=== PATIENT | male | born 1960 | race Caucasian/White ===

== ENCOUNTER → 2019-07-15 11:32 | Outpatient (BNVA) | payer MEDICARE, MEDICAID, SELFPAY | PROVIDERS: Family Provider Physician Assistant Medical; PCP Physician Assistant Medical; Visit Provider Registered Nurse | DX: E11.9 Type 2 diabetes mellitus without complications (principal); Z79.4 Long term (current) use of insulin; I10 Essential (primary) hypertension | CPT/HCPCS: 80053; 80061; 83036; 85025 ==

== ENCOUNTER → 2019-10-16 10:33 | Outpatient (BNVA) | payer MEDICARE, MEDICAID, SELFPAY | PROVIDERS: Family Provider Physician Assistant Medical; PCP Physician Assistant Medical; Visit Provider Nurse Practitioner Family | DX: E11.9 Type 2 diabetes mellitus without complications (principal); Z79.4 Long term (current) use of insulin; E78.5 Hyperlipidemia, unspecified; I10 Essential (primary) hypertension; G40.309 Generalized idiopathic epilepsy and epileptic syndromes, not intractable, without status epilepticus; Z79.899 Other long term (current) drug therapy | CPT/HCPCS: 80053; 80061; 83036 ==

== ENCOUNTER → 2020-01-18 14:25 | Outpatient (BNVA) | payer MEDICARE, MEDICAID, SELFPAY | PROVIDERS: Family Provider Physician Assistant Medical; PCP Physician Assistant Medical; Visit Provider Registered Nurse | DX: E11.40 Type 2 diabetes mellitus with diabetic neuropathy, unspecified (principal); Z79.4 Long term (current) use of insulin; I10 Essential (primary) hypertension; E11.649 Type 2 diabetes mellitus with hypoglycemia without coma; G40.309 Generalized idiopathic epilepsy and epileptic syndromes, not intractable, without status epilepticus | CPT/HCPCS: 80053; 83036 ==

== ENCOUNTER → 2020-05-18 15:10 | Outpatient (BNVA) | payer MEDICARE, MEDICAID, SELFPAY | PROVIDERS: Family Provider Physician Assistant Medical; PCP Nurse Practitioner Family; Visit Provider Nurse Practitioner Family | DX: L03.90 Cellulitis, unspecified; L02.413 Cutaneous abscess of right upper limb | CPT/HCPCS: 87070; 87077; 87184 ==

== ENCOUNTER 2023-05-08 20:50 | Emergency (ER) | payer MEDICARE, MEDICAID, SELFPAY ==
[2023-05-08 20:51] VITALS: BMI 39.5
[2023-05-08 21:03] VITALS: BP 166/88; PULSE 95; RESP 18; TEMP 36.6; O2SAT 91
[2023-05-08 21:32] VITALS: BP 171/82; PULSE 92; RESP 24; O2SAT 92
[2023-05-08 22:14] VITALS: BP 170/88; PULSE 88; RESP 15; O2SAT 96
[2023-05-08 22:30] VITALS: BP 163/82; PULSE 88; RESP 17; O2SAT 93
--- NOTE | 2023-05-08 22:31 | USR_ITS ---
PROCEDURE INFORMATION: Exam: US Duplex Lower Extremity Veins, Bilateral Exam date and time: 05/08/2023 11:14 PM Age: 62 years old Clinical indication: Edema, localized; Lower extremity, left; Prior surgery; Surgery date: 6+ months; Surgery type: A venous stent is visualized in the proximal portion of the left sfv. Patient states that a vascular surgeon at [facility] put that in just after his initial heavy-burden lle dvt in 1999. ; Additional info: Pain and swelling, previous blood clot lle TECHNIQUE: Imaging protocol: Real-time duplex ultrasound of the bilateral extremities with 2-D peraza scale, color Doppler flow and spectral waveform analysis including responses to compression and other maneuvers (when performed) with image documentation. Complete exam focused on the lower extremity veins. COMPARISON: No relevant prior studies available. FINDINGS: Right deep veins: Unremarkable. The common femoral, femoral, proximal profunda femoral and popliteal veins are patent without thrombus. Normal Doppler waveforms. Normal compressibility and/or augmentation response. Left deep veins: No definitive visualization of the majority of the left lower extremity venous system which appears chronically occluded. All of the chilkat veins appear small and likely scarred down over time. Note is made of an occluded left superficial femoral venous stent. Multiple collaterals are noted in the left lower extremity. Superficial veins: Greater saphenous veins at the saphenofemoral junctions are patent bilaterally without thrombus. Soft tissues: Unremarkable. US/[place] [id number] IMPRESSION: 1. Nonvisualization of the deep left venous system which is likely chronically occluded. An occluded left superficial femoral venous stent is noted. No definitive evidence of acute left lower extremity deep venous thrombosis. 2. No evidence of right lower extremity venous thrombosis.
--- NOTE | 2023-05-08 22:31 | CTR_ITS ---
PROCEDURE INFORMATION: Exam: CT Abdomen And Pelvis With Contrast Exam date and time: 05/09/2023 12:19 AM Age: 62 years old Clinical indication: Abdominal pain; Generalized; Additional info: Low back and abd pain TECHNIQUE: Imaging protocol: Computed tomography of the abdomen and pelvis with contrast. Radiation optimization: All CT scans at this facility use at least one of these dose optimization techniques: automated exposure control; mA and/or kV adjustment per patient size (includes targeted exams where dose is matched to clinical indication); or iterative reconstruction. Contrast material: OMNI 350; Contrast volume: 100 ml; Contrast route: INTRAVENOUS (IV); COMPARISON: [place] [id number] 05/08/2023 11:14 PM RADIATION DOSE METRICS: Total DLP (mGy-cm): 1417 FINDINGS: Lungs: Right posterior lower lobe atelectasis or scarring. Heart: Heart size is within normal limits. There is no pericardial effusion or pericardial thickening. Liver: The liver is normal. No hepatic masses are identified. Gallbladder and bile ducts: The gallbladder is contracted. There is no ductal dilatation. Pancreas: The pancreas is atrophic without obvious abnormality. Spleen: Calcified splenic granulomata are noted. The spleen is otherwise normal. Adrenal glands: The adrenal glands are normal. Kidneys and ureters: There is normal enhancement of the kidneys. No renal calcifications are identified. There is no hydronephrosis. Stomach and bowel: Moderate retained colonic stool. There is no large or small bowel obstruction. There is no evidence of bowel wall thickening. Appendix: A normal appendix is identified. Intraperitoneal space: No inflammatory changes are identified. There is no free fluid or fluid collection seen. There is no pneumoperitoneum. Vasculature: Atherosclerotic calcifications of the aorta are present. No aneurysm is identified. A left common iliac venous stent is present. The central portions of the stent are clamped down and appears severely narrowed. Calcifications are noted within the stent consistent with longstanding thrombus. The stent extends to the level of the left femoral vein. There appear to be multiple anterior abdominal wall venous collaterals. Lymph nodes: There are no enlarged retroperitoneal or mesenteric lymph nodes. There are mildly enlarged left inguinal lymph nodes, the larger measuring up to 2.1 x 1.4 cm. No other enlarged lymph nodes are seen. Urinary bladder: The bladder is unremarkable. Reproductive: The prostate is grossly unremarkable. Bones/joints: No acute osseous abnormalities are seen. Soft tissues: The soft tissues are within normal limits. There is a moderate periumbilical hernia containing only fat. Small bilateral inguinal hernias containing only fat are present. CT/CT abdomen pelvis w con* [id number] IMPRESSION: 1. Left common iliac venous stent which appears severely narrowed at the junction with the inferior vena cava. Calcifications are seen throughout the intraluminal portions of the stent consistent with longstanding thrombosis. 2. There are mildly enlarged left inguinal lymph nodes, the larger measuring up to 2.1 x 1.4 cm. 3. No acute intra-abdominal or pelvic process.
[2023-05-08 22:38] LABS: Basophils % 0.4 %; Eosinophils # 0.1 10^3/uL (0.0-0.8); Eosinophils % 0.7 %; Lymphocytes # 0.8 10^3/uL (0.8-4.8); Lymphocytes % 8.5 %; Mean Corpuscular HGB Conc 33.6 g/dL (30-55); Mean Corpuscular Hemoglobin 27.6 pg (27-33); Mean Corpuscular Volume 82.1 fl (82-101); Mean Platelet Volume 8.9 fL (7.4-10.4); Monocytes # 0.6 10^3/uL (0.2-0.9); Monocytes % 7.1 %; Neutrophils # 7.42 10^3/uL (1.8-7.7); Neutrophils % 82.7 %; Nucleated Red Blood Cells % 0 %; Platelet Count 288 10^3/cmm (157-399); Red Blood Count 4.75 10^6/uL (3.85-5.65); Red Cell Distribution Width 12.8 % (12.1-15.1); White Blood Count 8.97 10^3/uL (3.29-11.43)
[2023-05-08 22:43] LABS: Glucose Point of Care 259 mg/dL (70-110)
[2023-05-08 22:45] LABS: Add Urine Microscopic? NO; Charge for UA Resulting for Rev
[2023-05-08 22:46] LABS: Urine Color Yellow (Yellow)
[2023-05-08 22:47] LABS: Bilirubin Urine Neg (Negative); Blood Urine Neg (Negative); Glucose Urine UA 4+ (Normal); Ketones Urine 1+ (Negative); Leukocyte Esterase Urine Negative (Negative); Nitrate Urine Negative (Negative); Protein Urine Neg (Negative); Specific Gravity, Urine 1.015 (1.005-1.030); Urine Appearance Clear (CLEAR); Urobilinogen Urine Norm (Negative); pH Urine 6.5 (5-7)
[2023-05-08 22:54] LABS: Alanine Aminotransferase 11 U/L (0-41); Albumin Level 3.9 g/dL (3.5-5.2); Alkaline Phosphatase 180 U/L (40-130); Aspartate Amino Transferase 9 U/L (0-40); Blood Urea Nitrogen 11 mg/dL (8-23); Carbon Dioxide 27 mmol/L (22-29); Chloride 97 mmol/L (98-107); Creatinine Clr Calc Pharmacy 142.1822; Globulin 2.9 g/dL (1.3-4.6); Glomerular Filtration Rate 98.6 mL/min (90-130); Glucose 237 mg/dL (65-115); Osmolality Calculated 287 mOsm/kg (285-295); Sodium 135 mmol/L (136-145); Total Bilirubin 0.3 mg/dL (0.15-1.2); Total Protein 6.8 g/dL (6.6-8.7)
[2023-05-08 23:00] VITALS: BP 146/74; PULSE 86; RESP 23; O2SAT 92
[2023-05-08 23:05] LABS: Lactic Sepsis W/Reflex 1.3 mmol/L (0.5-2.2)
[2023-05-08] MEDS: ketorolac 30 mg/mL INJ IVP (23:22)
[2023-05-08 23:30] VITALS: BP 165/81; PULSE 84; RESP 22; O2SAT 94
[2023-05-09 00:13] VITALS: BP 187/94; PULSE 85; RESP 18; O2SAT 93
[2023-05-09] MEDS: iohexol 350 mg/mL 500 mL Btl (per mL) IV (00:29)
[2023-05-09 00:32] VITALS: BP 157/87; PULSE 81; RESP 20; O2SAT 96
[2023-05-09 01:11] VITALS: BP 169/89; PULSE 76; RESP 20; O2SAT 94
[2023-05-09 01:30] VITALS: BP 177/78; PULSE 74; RESP 22; O2SAT 95
--- NOTE | 2023-05-09 01:51 | ED_ITS ---
HPI - Extremity Problem 2 General: Chief complaint: Extremity Problem,Nontraumatic Stated complaint: leg pain Time Seen by Provider: 05/08/23 20:55 History of Present Illness: 62-year-old male presents emergency depa rtment via EMS personnel with complaints of right leg pain that started approximately 1 week ago and then went away. He states the pain started again today and he states that is a 9 out of 10 and goes from his upper right thigh to his buttocks into the lower portion of his back on the right side. He states he has a history of a DVT with a stent placed in the left leg and he feels like he has a blood clot in the right leg which is causing his pain. He denies known injury or trauma. He states he is a diabetic. He states that trying to bend his right leg feels like it increases the pain. He denies numbness or tingling. He denies known injury or trauma. Review of Systems 2 General: Reports: 10 or more systems reviewed and unremarkable except in HPI and below Musc: Reports: back pain and extremity pain [facility] ED 2 PFSH: Medical History Bilateral lower extremity edema Diabetic neuropathy Hyperlipidemia Scabies Type 2 diabetes mellitus with insulin therapy Social History Smoking and tobacco/nicotine status: former use of tobacco/nicotine Alcohol intake: never Physical Exam 2 Narrative: EXAM NARRATIVE: Constitutional: the patient appears well nourished and with normal development. Vital signs reviewed as documented. Morbidly obese, moderately unkept, HENMT: Normocephalic, atraumatic. External ears normal appearance without drainage. Nose without drainage, normal appearance. Mucus membranes moist. Neck is supple, No jugular venous distension, trachea is midline, no appreciable carotid bruits. No lymphadenopathy. No meningeal signs. Flexion, extension and lateral rotation is without pain. Eyes: Pupils are equal, round, reactive to light and accommodation. No scleral icterus. Extra-ocular movement are intact. Thorax is symmetrical and with equal rise and fall with respirations. Resp: Lungs are clear to auscultation. No wheezes, rales, crackles or ronchi at present. Cardio: Regular rate and rhythm. Positive S1, S2. No appreciable murmurs, rubs or gallops. GI: Abdominal exam reveals normal bowel sounds to all quadrants. No organomegaly. No obvious palpable masses noted. No hepatomegally appreciated. Soft, non-tender to palpation. Extremity: Trace bilateral lower extremity edema, dry gangrene noted to the right great toe approximately 1 cm x 2 cm and both femoral and pedal pulses are 2+ and equal bilaterally. Moves all extremities well, sensation in all extremities. Neuro: Alert and oriented x4, person, place, time and situation. Cranial nerves II through XII are grossly intact, there is no focal neurological deficits that I can appreciate at present. Sensation intact to all extremities. 2-point discrimination intact. Light touch intact to all extremities. Motor strength in the upper and lower extremities are equal and bilateral 5/5. Psych: Cooperative, calm, normal thought process, appropriate judgment. Skin: No lesions, rashes. No gross abnormalities noted. Back: Symmetrical, no obvious deformity, No CVA tenderness. Tenderness to palpation to the right gluteal region consistent with sciatica Course 2 Vital Signs: Vital signs: Vital Signs Temperature 97.8 F 05/08/23 21:03 Pulse Rate 75 05/09/23 02:16 Respiratory Rate 22 H 05/09/23 02:16 Blood Pressure 169/112 05/09/23 02:16 Pulse Oximetry 95 05/09/23 02:16 Oxygen Delivery Me thod Room Air 05/08/23 23:30 Oxygen Flow Rate 2 05/08/23 22:14 MDM - Extremity (Nontraumatic) Medical Decision Making Physical exam completed and documented I will obtain a CBC and CMP essentially both resulted as normal I did obtain a urinalysis and was found to have glucose and ketones, patient is a known diabetic. I did obtain an ultrasound of the bilateral lower extremities which demonstrated chronic DVT and occlusion of her previous placed stent on the left and no DVT or thrombus on the right lower extremity. CT of the abdomen pelvis did not demonstrate any acute findings that would lend cause to his right leg pain. Patient's clinical exam is consistent with sciatica I will prescribe him pain medications and advised him to follow-up with his primary care provider. Medical Records I reviewed the patient's medical records. Lab Data I reviewed the patient's lab results. 05/08/23 22:32 05/08/23 22:32 Radiology Impressions Abdomen/Pelvis CT 05/08/23 22:31 IMPRESSION: 1. Left common iliac venous stent which appears severely narrowed at the junction with the inferior vena cava. Calcifications are seen throughout the intraluminal portions of the stent consistent with longstanding thrombosis. 2. There are mildly enlarged left inguinal lymph nodes, the larger measuring up to 2.1 x 1.4 cm. 3. No acute intra-abdominal or pelvic process. Venous Duplex 05/08/23 22:31 IMPRESSION: 1. Nonvisualization of the deep left venous system which is likely chronically occluded. An occluded left superficial femoral venous stent is noted. No definitive evidence of acute left lower extremity deep venous thrombosis. 2. No evidence of right lower extremity venous thrombosis. ADDENDUM: 05/09/23 0148 ADDENDUM: THIS REPORT CONTAINS FINDINGS THAT MAY BE CRITICAL TO PATIENT CARE. The findings were verbally communicated via telephone conference with STEVIE HUBBARD at 1:46 AM CDT on 05/09/2023. The findings were acknowledged and understood. Laboratory Results WBC 8.97 10^3/uL (3.29-11.43) 05/08/23 22:32 RBC 4.75 10^6/uL (3.85-5.65) 05/08/23 22:32 Hgb 13.10 g/dL (11.27-16.99) 05/08/23 22:32 Hct 39.0 % (37-53) 05/08/23 22:32 MCV 82.1 fl (82-101) 05/08/23 22:32 MCH 27.6 pg (27-33) 05/08/23 22:32 MCHC 33.6 g/dL (30-55) 05/08/23 22:32 RDW 12.8 % (12.1-15.1) 05/08/23 22:32 Plt Count 288 10^3/cmm (157-399) 05/08/23 22:32 MPV 8.9 fL (7.4-10.4) 05/08/23 22:32 Neut % (Auto) 82.7 % 05/08/23 22:32 Lymph % (Auto) 8.5 % 05/08/23 22:32 [place] % (Auto) 7.1 % 05/08/23 22:32 Eos % (Auto) 0.7 % 05/08/23 22:32 Baso % (Auto) 0.4 % 05/08/23 22:32 Neut # (Auto) 7.42 10^3/uL (1.8-7.7) 05/08/23 22:32 Lymph # (Auto) 0.8 10^3/uL (0.8-4.8) 05/08/23 22:32 [place] # (Auto) 0.6 10^3/uL (0.2-0.9) 05/08/23: Eos # (Auto) 0.1 10^3/uL (0.0-0.8) 05/08/23 22: Baso # (Auto) 0.0 10^3/uL (0.0-0.1) 05/08/23: Nucleated RBC % (auto) 0 % 05/08/23: Nucleated RBCs # 0.0 /100WBC 05/08/23 22:32 Sodium 135 mmol/L (136-145) L 05/08/23 22:32 Potassium 5.0 mmol/L (3.5-5.1) 05/08/23 22:32 Chloride 97 mmol/L (98-107) L 05/08/23 22:32 Carbon Dioxide 27 mmol/L (22-29) 05/08/23 22:32 Anion Gap 16.0 (5-19) 05/08/23 22:32 BUN 11 mg/dL (8-23) 05/08/23 22:32 Creatinine 0.8 mg/dL (0.7-1.2) 05/08/23 22:32 GFR Calculation 98.6 mL/min (90-130) 05/08/23 22:32 Glucose 237 mg/dL (65-115) H 05/08/23 22:32 POC Glucose 259 mg/dL (70-110) H 05/08/23 22:38 Calculated Osmolality 287 mOsm/kg (285-295) 05/08/23 22:32 Lactic Acid 1.3 mmol/L (0.5-2.2) 05/08/23 22:44 Calcium 9.0 mg/dL (8.5-10.5) 05/08/23 22:32 Total Bilirubin 0.3 mg/dL (0.15-1.2) 05/08/23 22:32 AST 9 U/L (0-40) 05/08/23 22:32 ALT 11 U/L (0-41) 05/08/23 22:32 Alkaline Phosphatase 180 U/L (40-130) H 05/08/23 22:32 Total Protein 6.8 g/dL (6.6-8.7) 05/08/23 22:32 Albumin 3.9 g/dL (3.5-5.2) 05/08/23 22:32 Globulin 2.9 g/dL (1.3-4.6) 05/08/23 22:32 Procalcitonin 0.10 ng/mL (0-0.5) 05/08/23 22:32 Urine Color Yellow (Yellow) 05/08/23 22:39 Urine Appearance Clear (CLEAR) 05/08/23 22:39 Urine pH 6.5 (5-7) 05/08/23 22:39 Ur Specific [place] 1.015 (1.005-1.030) 05/08/23 22:39 Urine Protein Neg (Negative) 05/08/23 22:39 Urine Glucose (UA) 4+ (Normal) H 05/08/23 22:39 Urine Ketones 1+ (Negative) H 05/08/23 22:39 Urine Blood Neg (Negative) 05/08/23 22:39 Urine Nitrate Negative (Negative) 05/08/23 22:39 Urine Bilirubin Neg (Negative) 05/08/23 22:39 Urine Urobilinogen Norm mg/dL (Negative) 05/08/23 22:39 Ur Leukocyte Esterase Negative (Negative) 05/08/23 22:39 All radiology interpretation(s) finalized by discharge Discharge Plan Discharge Patient Disposition: Home Clinical Impression: Sciatica of right side, Chronic deep vein thrombosis of left lower extremity Condition: Stable Prescriptions: New tramadol 25 mg tablet 25 mg PO QID PRN (Reason: pain) Qty: 20 0RF No Action amlodipine 5 mg tablet 5 mg PO QDAY Qty: 90 0RF Levemir U-100 Insulin 100 unit/mL solution 50 unit SUBCUT BID 30 Days Qty: 30 3RF Rx Instructions: 50 units am & 50 units units evening. sufficient quantity (DME) pen needle, diabetic [BD Ultra-Fine Mini Pen Needle] 31 gauge x 3/16 needle See Rx Instructions .ROUTE .MEDSUPPLY Qty: 500 0RF Rx Instructions: USE WITH INSULIN 5 TIMES DAILY warfarin 10 mg tablet 10 mg PO DAILY Qty: 90 0RF topiramate 100 mg tablet 100 mg PO BID Qty: 180 0RF furosemide 20 mg tablet 20 mg PO DAILY Qty: 90 0RF ivermectin 3 mg tablet 9 mg PO DAILY Qty: 6 0RF Rx Instructions: Take 3 tabs now and repeat in 10 days. sulfamethoxazole-trimethoprim [Bactrim DS] 800-160 mg tablet 1 tab PO BID 15 Days Qty: 30 0RF pregabalin [Lyrica] 100 mg capsule 100 mg PO TID 30 Days Qty: 90 2RF sulfamethoxazole-trimethoprim [Bactrim DS] 800-160 mg tablet 1 tab PO Q12H 10 Days Qty: 20 0RF carbamide peroxide [Debrox] 6.5 % drops 5 drp otic (ear) DAILY 4 Days Qty: 15 0RF atorvastatin 40 mg tablet 40 mg PO QDAY Qty: 90 1RF Novolog U-100 Insulin aspart 100 unit/mL solution See Rx Instructions SUBCUT TID Qty: 10 3RF Rx Instructions: administer 10-20 units under the skin three times daily max 60 units. lisinopril 40 mg tablet See Rx Instructions .ROUTE .COMPLEX Qty: 90 0RF Dose Instruction: TAKE 1 TABLET BY MOUTH DAILY Rx Instructions: TAKE 1 TABLET BY MOUTH DAILY potassium chloride 20 mEq tablet,ER particles/crystals See Rx Instructions .ROUTE .COMPLEX Qty: 90 0RF Dose Instruction: TAKE 1 TABLET BY MOUTH DAILY Rx Instructions: TAKE 1 TABLET BY MOUTH DAILY insulin syringe-needle U-100 1 mL 30 gauge X 7/16 syringe See Rx Instructions .ROUTE .COMPLEX Qty: 100 0RF Dose Instruction: USE DIRECTED Rx Instructions: USE DIRECTED epinephrine 0.3 mg/0.3 mL auto-injector See Rx Instructions .ROUTE .COMPLEX Qty: 2 0RF Dose Instruction: INJECT 0.3MG IN THE MUSCLE EVERY 10 MINUTES NEEDED FOR ANAPHYLAXIS Rx Instructions: INJECT 0.3MG IN THE MUSCLE EVERY 10 MINUTES NEEDED FOR ANAPHYLAXIS Discharge Orders: Discharge ED (Routine); Ordered 05/09/23 Ordered By: Stevie Hubbard Referrals: Meche Kohler FNP [Primary Care Provider] - Discharge Diet: Usual diet Discharge Activity: Resume usual activity Patient Instructions: Opioid Safety, Pain Management Activity Restrictions/Additional Instructions: Activity Restrictions/Additional Instructions: [facility]. Please realize that you were seen in the Emergency Department and that we are providing you with an emergency medical screening exam and this may not be a complete and all inclusive of all the testing and or medical work-up that you may need to determine your ailment or severity of your illness. It is very important that you follow-up as instructed with your Primary care provider or Specialist for additional evaluation and to discuss your medical treatment plan. Coding Level of Care Code ED Brine Room Laborer for Abdifatah White
[2023-05-09 02:16] VITALS: BP 169/112; PULSE 75; RESP 22; O2SAT 95
== END 2023-05-09 03:48 | disposition home or self-care (01) ==
PROVIDERS: Emergency Provider Internal Medicine; PCP Nurse Practitioner Family
DX: M54.31 Sciatica, right side (principal); I82.502 Chronic embolism and thrombosis of unspecified deep veins of left lower extremity; Z79.01 Long term (current) use of anticoagulants; Z79.4 Long term (current) use of insulin; E11.42 Type 2 diabetes mellitus with diabetic polyneuropathy; E78.5 Hyperlipidemia, unspecified; Z87.891 Personal history of nicotine dependence
CPT/HCPCS: 36416; 74177; 80053; 81003; 82962; 83605; 84145; 85025; 93970; 96374; 99285; J1885; Q9967